=== PATIENT | female | born 1940 | race Caucasian/White ===

== ENCOUNTER 2016-12-29 12:50 | Outpatient (CLI) | payer MEDICARE, OTHER ==
[2008-10-15 16:38] VITALS: BP 151/85
[~2016-12-29] VITALS: Ht 162.6 cm; Wt 63.0 kg
[~2016-12-29 12:50] MED LIST: ACTONEL PO; ALLEGRA180 MG PO; ANTIVERT 25MG25 MG PO; ASPIR-LOW81 MG PO; ASPIRIN 32325 MG/TAB PO; CALCIUM ASCORB500 MG PO; CARDIZEM CD180 MG PO; CEFTIN500 MG PO; CELEBREX 200MG200 MG PO; CENTRUM SILVER1 TA1 PO; CLOBEX NAS; COMBIVENT INH14.7 GM IH; COZAAR 25MG25 MG/TAB; COZAAR 50MG50 MG/TAB PO; DUO-KAPS1 CAP PO; FIBERCON 6625 MG/TAB PO; FLAGYL 250250 MG/TAB PO; FLECAINIDE PO; LEVOTHROID0.125 MG PO; NATURE'S BL400 IU/ML PO; NORCO 325 MG-51 TAB PO; PRILOSEC 20MG20 MG PO; PROTONIX 40MG T40 MG; VALIUM 5MG T5 MG/TAB PO; VITAMIN C500 MG PO; VITAMIN D2000 I1 PO; Z-BEC1 TAB
[2016-12-29 13:36] VITALS: BP 142/61; PULSE 66; TEMP 98.5
[2016-12-29] MEDS ORDERED: SYNTHROID0.125 MG/T PO (13:50)
[2016-12-29] MEDS ORDERED: TAMBOCOR 1100 MG/TAB PO (13:50)
[2016-12-29] MEDS ORDERED: VENTOLIN0.09 MG IH (13:51)
[2016-12-29] MEDS ORDERED: TAZTIA180 PO (13:51)
[2016-12-29] MEDS ORDERED: MULTI VITAMINS1 TAB PO (13:52)
[2016-12-29] MEDS ORDERED: VITAMIND3 5000 PO (13:53)
== END 2016-12-29 15:24 | disposition home or self-care (01) ==
LOC: EUO 12:50
DX: M85.80 Other specified disorders of bone density and structure, unspecified site (principal); Z79.899 Other long term (current) drug therapy; Z90.722 Acquired absence of ovaries, bilateral
CPT/HCPCS: J3489

== ENCOUNTER → 2017-03-01 | Outpatient (CLI) | payer MEDICARE, OTHER ==
[~2017-03-01] MED LIST changes: +MULTI VITAMINS1 TAB PO; +SYNTHROID0.125 MG/T PO; +TAMBOCOR 1100 MG/TAB PO; +TAZTIA180 PO; +VENTOLIN0.09 MG IH; +VITAMIND3 5000 PO
== END ==
LOC: MC.RAD 09:00
DX: R92.0 Mammographic microcalcification found on diagnostic imaging of breast (principal)

== ENCOUNTER 2017-03-07 16:22 | Inpatient (IN) | payer MEDICARE ==
[2017-03-07] VITALS (172 sets, daily range): BP systolic 180; BP diastolic 102; PULSE 109; TEMP 99.4; O2SAT 81–98
[~2017-03-07] VITALS: Ht 162.6 cm; Wt 60.9 kg
[2017-03-07 17:20] LABS: BASO # 0.1 (0.0-0.2); BASO % 0.5 % (0.0-2.0); EOS % 0.2 % (0-4.0); GRAN # 7.9 (1.4-6.5); GRAN % 84.1 % (42.2-75.2); HEMATOCRIT 46.9 % (37.0-47.0); HEMOGLOBIN 15.9 g/dl (12.5-16.0); MEAN CELL VOLUME 101 fl (80.0-100.0); MEAN CORPUSCULAR HEMOGLOBIN 34 pg (27.0-31.0); MEAN CORPUSCULAR HGB CONC 34 g/dl (33.0-37.0); MEAN PLATELET VOLUME 9.8 fl (7.4-10.4); MONO # 0.4 (0.1-0.6); PLATELET COUNT 228 K/mm3 (130-400); RED BLOOD COUNT 4.66 M/mm3 (4.10-5.30); REDCELL DISTRIBUTION WIDTH-CV 13.6 % (11.5-14.5); WHITE BLOOD COUNT 9.3 K/mm3 (4.8-10.8)
[2017-03-07 17:34] LABS: ADJUSTED CALCIUM 9.7 mg/dL (8.4-10.2); ALANINE AMINOTRANSFERASE 20 U/L (9-52); ALBUMIN 4.4 gm/dL (3.5-5.0); ALKALINE PHOSPHATASE 107 U/L (50-136); ANION GAP 16 mmol/L (7-16); BILIRUBIN,TOTAL 1.3 mg/dL (0.0-1.0); BLOOD UREA NITROGEN 17 mg/dL (7-17); CARBON DIOXIDE 22 mmol/L (22-30); CHLORIDE 100 mmol/L (98-107); CREATININE, serum 0.98 mg/dL (0.52-1.25); GLUCOSE 151 mg/dL (74-106); LIPASE 52 U/L (23-300); SODIUM 138 mmol/L (137-145); TOTAL PROTEIN 8.9 gm/dL (6.4-8.2)
[2017-03-07] MEDS ORDERED: VITAMIN D 1001000 IU (17:38)
[2017-03-07] MEDS ORDERED: VITAMIN C500 MG PO (17:38)
[2017-03-07] MEDS ORDERED: ASPIRIN 32325 MG/TAB PO (17:39)
[2017-03-07] MEDS ORDERED: RECLAST5 MG/100 M IV (17:40)
[2017-03-07 17:42] LABS: C-REACTIVE PROTEIN < 0.5 mg/dL (0.0-0.9)
[2017-03-07 18:28] LABS: TROPONIN-I < 0.012 ng/mL (0.000-0.034)
[2017-03-07 18:33] LABS: pH GASTRIC CONTENTS 2
[2017-03-07 18:34] LABS: PH 8 (5-8); SQUAMOUS EPITHELIAL 0-2 /hpf; URINE APPEARANCE Clear; URINE BACTERIA None Seen /hpf; URINE BILIRUBIN Negative (NEGATIVE); URINE BLOOD 1+ (NEGATIVE); URINE COLOR Straw; URINE GLUCOSE 1+ (NEGATIVE); URINE KETONE 1+ (NEGATIVE); URINE UROBILINOGEN Negative (NEGATIVE)
[2017-03-07 21:09] LABS: B-TYPE NATRIURETIC PEPTIDE 743 pg/mL (0-450)
[2017-03-08] VITALS (601 sets, daily range): BP systolic 93–142; BP diastolic 57–80; PULSE 70–85; TEMP 98–99.4; O2SAT 82–100
[2017-03-08 06:06] LABS: BASO % 0.2 % (0.0-2.0); GRAN # 5.7 (1.4-6.5); GRAN % 70.3 % (42.2-75.2); HEMATOCRIT 38.3 % (37.0-47.0); LYMPH # 1.6 (1.2-3.4); LYMPH % 19.5 % (20.0-51.0); MEAN CELL VOLUME 102 fl (80.0-100.0); MEAN CORPUSCULAR HEMOGLOBIN 34 pg (27.0-31.0); MEAN CORPUSCULAR HGB CONC 33 g/dl (33.0-37.0); MONO # 0.8 (0.1-0.6); MONO % 9.6 % (1.7-9.3); PLATELET COUNT 202 K/mm3 (130-400); RED BLOOD COUNT 3.76 M/mm3 (4.10-5.30); REDCELL DISTRIBUTION WIDTH-CV 13.7 % (11.5-14.5); WHITE BLOOD COUNT 8.1 K/mm3 (4.8-10.8)
[2017-03-08 06:08] LABS: HEMOGLOBIN 12.7 g/dl (12.5-16.0)
[2017-03-08 06:18] LABS: CALCIUM 7.3 mg/dL (8.4-10.2); CREATININE, serum 0.91 mg/dL (0.52-1.25); POTASSIUM 3.4 mmol/L (3.4-5.0)
[2017-03-09] VITALS (12 sets, daily range): BP systolic 116–153; BP diastolic 57–76; PULSE 61–74; TEMP 98–98.9
[2017-03-09 08:32] LABS: HEMATOCRIT 40.5 % (37.0-47.0); HEMOGLOBIN 13.2 g/dl (12.5-16.0)
[2017-03-09] MEDS ORDERED: ZANTAC 150150 MG PO (14:48)
[2017-03-09] MEDS ORDERED: FLAGYL500 MG PO (15:58)
[2017-03-09] MEDS ORDERED: CEFTIN500 MG PO (15:59)
== END 2017-03-09 17:45 | disposition home or self-care (01) | DRG 394 ==
LOC: COL.ER 16:22 → ICU 19:37 → MEDICAL 03-08 17:49
PROVIDERS: Emergency Medicine; Internal Medicine Gastroenterology; Nurse Practitioner Family; Physician Assistant
PROC: 0DB78ZX Excision of Stomach, Pylorus, Via Natural or Artificial Opening Endoscopic, Diagnostic (ICD-10-PCS; principal; 2017-03-09 12:45)
PROC: 0DBN8ZX Excision of Sigmoid Colon, Via Natural or Artificial Opening Endoscopic, Diagnostic (ICD-10-PCS; 2017-03-09 12:45)
DX: K55.9 Vascular disorder of intestine, unspecified (principal); N39.0 Urinary tract infection, site not specified; K92.0 Hematemesis; E03.9 Hypothyroidism, unspecified; Z66 Do not resuscitate; K64.0 First degree hemorrhoids; I48.91 Unspecified atrial fibrillation; D47.2 Monoclonal gammopathy; K57.30 Diverticulosis of large intestine without perforation or abscess without bleeding; R03.0 Elevated blood-pressure reading, without diagnosis of hypertension; K29.70 Gastritis, unspecified, without bleeding; Z96.653 Presence of artificial knee joint, bilateral; Z79.82 Long term (current) use of aspirin; Z86.718 Personal history of other venous thrombosis and embolism; Z86.010 Personal history of colon polyps; Z80.0 Family history of malignant neoplasm of digestive organs
CPT/HCPCS: 99223-AI; 99239; C9113; J0696; J2405; J2550; J2704; J2765; J3010; J7030; Q9967

== ENCOUNTER → 2017-05-05 | Outpatient (CLI) | payer MEDICARE, OTHER ==
[~2017-05-05] MED LIST changes: +FLAGYL500 MG PO; +RECLAST5 MG/100 M IV; +VITAMIN D 1001000 IU; +ZANTAC 150150 MG PO
== END ==
LOC: COL.RAD 08:42
DX: K57.10 Diverticulosis of small intestine without perforation or abscess without bleeding (principal)

== ENCOUNTER 2017-08-23 15:03 | Inpatient (IN) | payer MEDICARE ==
[~2017-08-23] VITALS: Ht 162.6 cm; Wt 60.4 kg
[~2017-08-23 15:03] MED LIST changes: -VITAMIN D 1001000 IU; +VITAMIN D 1001000 IU PO
[2017-08-23 15:47] VITALS: BP 140/71; PULSE 88; TEMP 98.6
[2017-08-23] MEDS ORDERED: ZOFRAN 4MG T4 MG/TAB PO (16:11)
[2017-08-23] MEDS ORDERED: ULTRAM 50MG TAB50 MG PO (16:12)
[2017-08-24 05:45] VITALS: BP 118/82; PULSE 79; TEMP 98.4
[2017-08-24 16:06] VITALS: BP 144/67; PULSE 70; TEMP 97.5
[2017-08-25 05:44] VITALS: BP 133/64; PULSE 68; TEMP 98.6
[2017-08-25 16:17] VITALS: BP 150/80; PULSE 69; TEMP 98.1
[2017-08-26 06:00] VITALS: BP 152/73; PULSE 66; TEMP 98.2
[2017-08-26 15:00] VITALS: BP 133/71; PULSE 74; TEMP 98.1
[2017-08-27 06:00] VITALS: BP 153/74; PULSE 72; TEMP 98.4
[2017-08-27 18:11] VITALS: BP 155/83; PULSE 81; TEMP 98.7
[2017-08-28 06:35] VITALS: BP 143/86; PULSE 80; TEMP 98.8
[2017-08-28 15:55] VITALS: BP 131/69; PULSE 77; TEMP 98
[2017-08-29 04:18] VITALS: BP 146/79; PULSE 73; TEMP 98.4
[2017-08-29 15:58] VITALS: BP 135/71; PULSE 83; TEMP 98.3
[2017-08-30 06:00] VITALS: BP 164/80; PULSE 72; TEMP 98.1
[2017-08-30 16:08] VITALS: BP 124/64; PULSE 80; TEMP 97.6
[2017-08-31 06:44] VITALS: BP 150/61; PULSE 74; TEMP 99.1
[2017-08-31] MEDS ORDERED: TYLENOL 325MG325 MG PO (08:20)
[2017-08-31] MEDS ORDERED: LEADER CLE17 GM/Dose PO (08:23)
[2017-08-31] MEDS ORDERED: ULTRAM 50MG TAB50 MG PO (08:23)
== END 2017-08-31 11:45 | disposition home health service (06) | DRG 950 ==
DX: S83.411D Sprain of medial collateral ligament of right knee, subsequent encounter (principal); M25.511 Pain in right shoulder; M25.551 Pain in right hip; D47.2 Monoclonal gammopathy; I10 Essential (primary) hypertension; I48.0 Paroxysmal atrial fibrillation; W01.0XXD Fall on same level from slipping, tripping and stumbling without subsequent striking against object, subsequent encounter; G62.9 Polyneuropathy, unspecified
CPT/HCPCS: 99222-AI; 99232-AI; 99239; J1650

== ENCOUNTER 2018-01-12 14:30 | Outpatient (CLI) | payer MEDICARE, OTHER ==
[2008-10-15 16:38] VITALS: BP 151/85
[~2018-01-12] VITALS: Ht 162.6 cm; Wt 60.1 kg
[~2018-01-12 14:30] MED LIST changes: +LEADER CLE17 GM/Dose PO; +TYLENOL 325MG325 MG PO; +ULTRAM 50MG TAB50 MG PO; +ZOFRAN 4MG T4 MG/TAB PO
[2018-01-12] MEDS ORDERED: VITAMIN B125000 MCG PO (15:11)
[2018-01-12 15:14] VITALS: PULSE 65; TEMP 98.7
== END 2018-01-12 15:35 | disposition home or self-care (01) ==
LOC: EUO 14:30
DX: M81.0 Age-related osteoporosis without current pathological fracture (principal)
CPT/HCPCS: J3489

== ENCOUNTER 2018-02-21 08:27 | Emergency (ER) | payer MEDICARE, OTHER ==
[2008-10-15 16:38] VITALS: BP 151/85
[~2018-02-21] VITALS: Ht 162.6 cm; Wt 60.0 kg
[~2018-02-21 08:27] MED LIST changes: +VITAMIN B125000 MCG PO
[2018-02-21 08:51] LABS: BASO # 0.1 (0.0-0.2); BASO % 0.9 % (0.0-2.0); EOS # 0.5 (0.0-0.7); EOS % 6.8 % (0-4.0); GRAN # 3.7 (1.4-6.5); GRAN % 54.6 % (42.2-75.2); HEMATOCRIT 44.3 % (37.0-47.0); HEMOGLOBIN 14.8 g/dl (12.5-16.0); LYMPH # 1.8 (1.2-3.4); LYMPH % 27.3 % (20.0-51.0); MEAN CELL VOLUME 100 fl (80.0-100.0); MEAN CORPUSCULAR HEMOGLOBIN 33 pg (27.0-31.0); MEAN CORPUSCULAR HGB CONC 33 g/dl (33.0-37.0); MONO # 0.7 (0.1-0.6); MONO % 10.1 % (1.7-9.3); PLATELET COUNT 204 K/mm3 (130-400); RED BLOOD COUNT 4.44 M/mm3 (4.10-5.30)
[2018-02-21] MEDS ORDERED: TYLENOL 8 HR PO (08:57)
[2018-02-21] MEDS ORDERED: VITAMIN C500 MG PO (09:00)
[2018-02-21] MEDS ORDERED: ALREX 5 ML5 ML OP (09:00)
[2018-02-21 09:01] LABS: ALANINE AMINOTRANSFERASE 20 U/L (9-52); ALBUMIN 3.9 gm/dL (3.5-5.0); ALKALINE PHOSPHATASE 82 U/L (50-136); ANION GAP 10 mmol/L (7-16); AST,SGOT 24 U/L (15-37); BILIRUBIN,TOTAL 0.7 mg/dL (0.0-1.0); BLOOD UREA NITROGEN 18 mg/dL (7-17); CALCIUM 8.9 mg/dL (8.4-10.2); CARBON DIOXIDE 28 mmol/L (22-30); CHLORIDE 101 mmol/L (98-107); CREATININE, serum 1.02 mg/dL (0.52-1.25); GLUCOSE 115 mg/dL (74-106); POTASSIUM 3.9 mmol/L (3.4-5.0); SODIUM 139 mmol/L (137-145)
[2018-02-21] MEDS ORDERED: ALLEGRA 180MG180 MG PO (09:02)
[2018-02-21] MEDS ORDERED: COZAAR 50MG50 MG/TAB PO (09:03)
[2018-02-21] MEDS ORDERED: MULTI VITAMINS1 TAB PO (09:04)
[2018-02-21 09:12] LABS: TROPONIN-I < 0.012 ng/mL (0.000-0.034)
[2018-02-21] MEDS ORDERED: CATAPRES 0.1MG0.1 MG PO (12:10)
[2018-02-21 12:22] VITALS: BP 131/72; PULSE 64
== END 2018-02-21 12:22 | disposition home or self-care (01) ==
LOC: COL.ER 08:27
PROVIDERS: Emergency Medicine
DX: I10 Essential (primary) hypertension (principal); I48.91 Unspecified atrial fibrillation; E03.9 Hypothyroidism, unspecified; Z86.718 Personal history of other venous thrombosis and embolism; Z79.82 Long term (current) use of aspirin
CPT/HCPCS: J7030

== ENCOUNTER 2019-01-10 15:30 | Outpatient (RCR) | payer MEDICARE, OTHER ==
[2019-02-01] MEDS ORDERED: ZANTAC 150MG T150 MG PO (11:24)
[2019-02-01] MEDS ORDERED: CATAPRES 0.1MG0.1 MG PO (11:25)
[2019-02-01] MEDS ORDERED: ULTRAM 50MG TAB50 MG PO (11:26)
[2019-02-01] MEDS ORDERED: TAZTIA180 PO (11:28)
[2019-02-01] MEDS ORDERED: SYSTANE 0.4%-0.1 SOL OP (11:30)
[2019-02-01] MEDS ORDERED: RECLAST5 MG/100 M IV (11:33)
[2019-03-26] MEDS ORDERED: NEURONTIN300 MG/CAP PO (11:35)
== END 2019-04-02 | disposition home or self-care (01) ==
LOC: WSST
DX: R13.12 Dysphagia, oropharyngeal phase (principal)

== ENCOUNTER → 2019-01-10 | Outpatient (CLI) | payer MEDICARE, OTHER ==
[~2019-01-10] MED LIST changes: +ALLEGRA 180MG180 MG PO; +ALREX 5 ML5 ML OP; +CATAPRES 0.1MG0.1 MG PO; +TYLENOL 8 HR PO
== END ==
LOC: COL.RAD 13:58
DX: R13.12 Dysphagia, oropharyngeal phase (principal)

== ENCOUNTER 2019-02-01 10:11 | Outpatient (CLI) | payer MEDICARE, OTHER ==
[2008-10-15 16:38] VITALS: BP 151/85
[~2019-02-01] VITALS: Ht 162.6 cm; Wt 57.1 kg
[2019-02-01 10:47] VITALS: BP 124/64; PULSE 65; TEMP 98
[2019-02-01] MEDS ORDERED: ZANTAC 150MG T150 MG PO (11:24)
[2019-02-01] MEDS ORDERED: CATAPRES 0.1MG0.1 MG PO (11:25)
[2019-02-01] MEDS ORDERED: ULTRAM 50MG TAB50 MG PO (11:26)
[2019-02-01] MEDS ORDERED: TAZTIA180 PO (11:28)
[2019-02-01] MEDS ORDERED: SYSTANE 0.4%-0.1 SOL OP (11:30)
[2019-02-01] MEDS ORDERED: RECLAST5 MG/100 M IV (11:33)
== END 2019-02-01 11:34 | disposition home or self-care (01) ==
LOC: EUO 10:11
DX: M81.0 Age-related osteoporosis without current pathological fracture (principal); M85.80 Other specified disorders of bone density and structure, unspecified site
CPT/HCPCS: J3489

== ENCOUNTER 2019-02-19 13:40 | Emergency (ER) | payer MEDICARE, OTHER ==
[2008-10-15 16:38] VITALS: BP 151/85
[~2019-02-19] VITALS: Ht 162.6 cm; Wt 59.0 kg
[~2019-02-19 13:40] MED LIST changes: +SYSTANE 0.4%-0.1 SOL OP; +ZANTAC 150MG T150 MG PO
[2019-02-19 17:00] VITALS: BP 158/90; PULSE 71; TEMP 98.2
== END 2019-02-19 17:05 | disposition home or self-care (01) ==
LOC: COL.ER 13:40
DX: S32.502A Unspecified fracture of left pubis, initial encounter for closed fracture (principal); I10 Essential (primary) hypertension; R40.2412 Glasgow coma scale score 13-15, at arrival to emergency department; W06.XXXA Fall from bed, initial encounter

== ENCOUNTER → 2019-03-07 | Outpatient (CLI) | payer MEDICARE, OTHER | LOC: MC.RAD 12:56 | DX: Z12.31 Encounter for screening mammogram for malignant neoplasm of breast (principal) ==

== ENCOUNTER 2019-03-26 08:35 | Emergency (ER) | payer MEDICARE, OTHER ==
[2008-10-15 16:38] VITALS: BP 151/85
[~2019-03-26] VITALS: Ht 160 cm; Wt 53.6 kg
[2019-03-26 08:40] VITALS: TEMP 97.2
--- NOTE | 2019-03-26 10:32 | NUR ---
SW received consult for patient in ED. case worker met with patient and POA about patient DC. Patient reports that she is in a lot of pain and has difficulty getting in and out of her bed and indicated that she is pending move to [facility] on this week to [facility]. Patient reports that she was in rehab at [facility] for a skilled stay and had completed the stay. Patient reports that she has not had the home health services and intially refused. SW called [facility] for service support. [facility] indicated that they [facility]. ZACHARY informed patient of options. Patient made the choice [facility] for [place] next four days. Patient indicated that she needs pain management. ZACHARY faxed homehealth referral to [phone] and [phone]. Pending [facility] to start today upon DC with order for [facility] support.
[2019-03-26] MEDS ORDERED: NEURONTIN300 MG/CAP PO (11:35)
[2019-03-26 11:50] VITALS: BP 143/77; PULSE 74
== END 2019-03-26 11:50 | disposition home or self-care (01) ==
LOC: COL.ER 08:35
DX: M19.011 Primary osteoarthritis, right shoulder (principal); M19.012 Primary osteoarthritis, left shoulder; M48.00 Spinal stenosis, site unspecified; Z79.82 Long term (current) use of aspirin
CPT/HCPCS: J2270; J2550

== ENCOUNTER → 2019-07-26 | Outpatient (CLI) | payer MEDICARE, OTHER ==
[~2019-07-26] MED LIST changes: +NEURONTIN300 MG/CAP PO
== END ==
LOC: COL.RAD 12:58
DX: D75.89 Other specified diseases of blood and blood-forming organs (principal)

== ENCOUNTER 2020-07-10 11:28 | Emergency (ER) | payer MEDICARE, OTHER ==
[2008-10-15 16:38] VITALS: BP 151/85
[~2020-07-10] VITALS: Ht 162.6 cm; Wt 55.5 kg
[2020-07-10 11:30] VITALS: TEMP 97.7
[2020-07-10 13:22] LABS: CALCIUM 9.6 mg/dL (8.4-10.2); CREATININE, serum 1.28 (0.52-1.25); POTASSIUM 4.3 mmol/L (3.4-5.0)
[2020-07-10 16:33] VITALS: BP 140/88; PULSE 92
== END 2020-07-10 16:55 | disposition home or self-care (01) ==
LOC: COL.ER 11:28
PROVIDERS: Emergency Medicine
DX: M54.5 Low back pain (principal); Z88.0 Allergy status to penicillin; Z88.1 Allergy status to other antibiotic agents; Z88.2 Allergy status to sulfonamides; Z87.891 Personal history of nicotine dependence; Z79.82 Long term (current) use of aspirin; W05.0XXA Fall from non-moving wheelchair, initial encounter
CPT/HCPCS: J1885

== ENCOUNTER → 2021-09-04 | Outpatient (CLI) | payer MEDICARE, OTHER | LOC: MC.RAD 13:46 | DX: Z12.31 Encounter for screening mammogram for malignant neoplasm of breast (principal) ==

== ENCOUNTER 2022-01-05 17:51 | Observation (INO) | payer MEDICARE, OTHER ==
[~2022-01-05] VITALS: Ht 160 cm; Wt 52.9 kg
[~2022-01-05 17:51] MED LIST changes: -TAMBOCOR 1100 MG/TAB PO; +TAMBOCOR50 MG PO
[2022-01-05 18:21] LABS: BASO # 0.1 K/mm3 (0.0-0.2); BASO % 0.9 % (0.0-2.0); EOS # 0.6 K/mm3 (0.0-0.7); EOS % 6.6 % (0.0-4.0); GRAN % 72.5 % (42.2-75.2); HEMATOCRIT 40.8 % (37.0-47.0); HEMOGLOBIN 13.4 g/dl (12.5-16.0); LYMPH # 1.1 K/mm3 (1.2-3.4); LYMPH % 10.9 % (20.0-51.0); MEAN CELL VOLUME 104 fl (80.0-100.0); MEAN CORPUSCULAR HEMOGLOBIN 34 pg (27-31); MEAN CORPUSCULAR HGB CONC 33 g/dl (33.0-37.0); MEAN PLATELET VOLUME 9.6 fl (7.4-10.4); MONO # 0.9 K/mm3 (0.1-0.6); MONO % 8.8 % (1.7-9.3); PLATELET COUNT 135 K/mm3 (130-400); RED BLOOD COUNT 3.93 M/mm3 (4.10-5.30); REDCELL DISTRIBUTION WIDTH-CV 14.5 % (11.5-14.5)
[2022-01-05 18:37] LABS: ALBUMIN 3.5 gm/dL (3.4-4.8); ANION GAP 12 mmol/L (7-16); BLOOD UREA NITROGEN 22 mg/dL (10-20); CALCIUM 8.9 mg/dL (8.4-10.2); CARBON DIOXIDE 22 mmol/L (23-31); CHLORIDE 105 mmol/L (98-107); CREATININE, serum 1.29 mg/dL (0.57-1.11); GLUCOSE 146 mg/dL (70-99); PHOSPHOROUS 3.6 mg/dL (2.3-4.7); POTASSIUM 4.2 mmol/L (3.5-4.5); SODIUM 139 mmol/L (136-145)
[2022-01-05] MEDS ORDERED: ASPIRIN E.C. 8181 MG PO (18:39)
[2022-01-05] MEDS ORDERED: VITAMIN D31000 IU PO (18:40)
[2022-01-05] MEDS ORDERED: B-121000 MCG PO (18:41)
[2022-01-05] MEDS ORDERED: MIRALAX PA17 GM/Dose PO (18:45)
[2022-01-05] MEDS ORDERED: PROLIA60 MG/ML SQ (18:45)
[2022-01-05] MEDS ORDERED: CALCIUM 600600 MG PO (18:46)
[2022-01-05] MEDS ORDERED: ALREX 5 ML5 ML OP (18:46)
[2022-01-05] MEDS ORDERED: NEURONTIN100 MG/CAP PO (18:47)
[2022-01-05 18:53] LABS: TROPONIN-I < 0.010 ng/mL (0.00-0.033)
[2022-01-05 19:43] LABS: COLLECTION METHOD CLEAN CATCH
[2022-01-05 20:01] LABS: SQUAMOUS EPITHELIAL None Seen /hpf (0-10); URINE BACTERIA None Seen /hpf (NONE SEEN)
[2022-01-05 20:02] LABS: PH 6 (5-8); URINE APPEARANCE Clear (CLEAR/HAZY); URINE BLOOD 1+ (NEGATIVE); URINE COLOR Straw (YELLOW); URINE GLUCOSE Negative (NEGATIVE); URINE KETONE Negative (NEGATIVE); URINE NITRATE Negative (NEGATIVE); URINE PROTEIN(semi-quant) Negative (NEGATIVE); URINE UROBILINOGEN Negative (NEGATIVE)
[2022-01-06] VITALS (15 sets, daily range): BP systolic 132–183; BP diastolic 71–96; PULSE 67–81; TEMP 98.5
[2022-01-06 05:50] LABS: BASO # 0.1 K/mm3 (0.0-0.2); BASO % 1.1 % (0.0-2.0); EOS # 0.9 K/mm3 (0.0-0.7); EOS % 12.5 % (0.0-4.0); GRAN # 3.9 K/mm3 (1.4-6.5); GRAN % 54.1 % (42.2-75.2); HEMOGLOBIN 11.5 g/dl (12.5-16.0); LYMPH # 1.5 K/mm3 (1.2-3.4); LYMPH % 21.1 % (20.0-51.0); MEAN CELL VOLUME 102 fl (80.0-100.0); MEAN CORPUSCULAR HEMOGLOBIN 33 pg (27-31); MEAN CORPUSCULAR HGB CONC 33 g/dl (33.0-37.0); MEAN PLATELET VOLUME 9.9 fl (7.4-10.4); MONO # 0.8 K/mm3 (0.1-0.6); MONO % 11.1 % (1.7-9.3); PLATELET COUNT 129 K/mm3 (130-400); RED BLOOD COUNT 3.45 M/mm3 (4.10-5.30); REDCELL DISTRIBUTION WIDTH-CV 14.3 % (11.5-14.5)
[2022-01-06 06:05] LABS: CALCIUM 8.4 mg/dL (8.4-10.2); CREATININE, serum 1.04 mg/dL (0.57-1.11); POTASSIUM 3.9 mmol/L (3.5-4.5)
[2022-01-06 06:16] LABS: HEMATOCRIT 35.1 % (37.0-47.0)
[2022-01-06 06:33] LABS: TROPONIN-I 0.034 ng/mL (0.00-0.033)
--- NOTE | 2022-01-06 10:16 | NUR ---
Initial visit; "Kayla" thanked Joinery Setter Out for looking in on her and offering God's blessings. Patient was receptive to Joinery Setter Out keeping her in her prayers and Joinery Setter Out will follow up while patient is here at [facility].
[2022-01-06] MEDS ORDERED: SYSTANE GEL EYE10 ML OP (10:51)
[2022-01-06] MEDS ORDERED: CLARITIN 1010 MG/TAB PO (10:52)
--- NOTE | 2022-01-06 11:28 | NUR ---
SEE MERGE FOR ALL MEDICATION ADMINISTRATION TIMES, INTRA AND POST SEDATION ASSESSMENTS
--- NOTE | 2022-01-06 15:19 | NUR ---
THIS CONSULTANT ATTEMPTED TO REMOVE 3MLS OF AIR FROM THE RADIAL COMPRESSION BAND. THE RADIAL PUNCTURE SITE BEGAN TO BLEED AND I PUT THE 3MLS BACK, STOPPING THE BLEEDING.
--- NOTE | 2022-01-06 18:28 | NUR ---
PT ALERT AND ORIENTED. BACK FROM CARDIAC CATH AT 1300. SOME BLEEDING AT FEMORAL SITE, STOPPING WITH MANUAL PRESSURE. RADIAL SITE BLEEDING WITH AIR OUT ON FIRST 2 ATTEMPTS HAVE SUBSEQUENTLY BEEN ABLE TO PULL 5 MLS WITH NO BLEEDING. PT HAD ELEVATED BP, RESOLVING AFTER IV HYDRALAZINE. PT HAD N/V AFTER HYDRALAZINE INJECTION, RESOLVING WITH FOOD.
--- NOTE | 2022-01-07 00:35 | NUR ---
Pt alert and oriented. Follows commands. Pt was vomiting during shift change report. Prn zofran was ordered and administered by the ángelakyft RN with pt reporting relief. TR band remained on at shift change d/t bleeding at the right radial site. The right femoral site had also been reportedly bleeding after the procedure, but had ceased bleeding after a few hours for dayshift. Both the right radial and right femoral sites were assessed at bedside with the dayskyft RN. Femoral site is soft, and remains soft, with no bruising/tenderness/edema/hematoma. The femstop dressing is in place. There is a moderate amount of dried red drainage on the femstop gauze. The gauze is not saturated. Continuing to frequently assess the dressing. The right radial band had 9 ml left in it at shift change, with no bleeding. I removed 3 ml out around 2014, waitied 15 mins and removed another 3 ml. No new bleeding/drainage was noted. After another 30 mins the final 3 ml was removed from the right radial TR band and a bandaid dressing was applied. Site is soft/non-edematous. No pain/hematoma/bleeding noted. Pt had began to report more nausea around 2100, prn zofran was administered with relief reported. Pt also reported having some diarrhea earlier in the day. Pt has poor appetite. VS stable. On room air. Shift assessment performed. Medications administered per orders and education provided. No significant skin issues noted. Pt up to ambulate around room with walker. Bed low and locked, call hagan within reach. Pt does not report any questions at this time. No new concerns at this time.
--- NOTE | 2022-01-07 02:16 | NUR ---
Assessed pt's femoral and radial sites again. Pt's femoral site is soft with no swelling/hematoma. The dressing appeared to have more areas of red drainage on the gauze. Provider and warehouse packaging supervisor were notified. A sandbag has been applied to the right femoral site. Pt was educated. Site remains soft. Radial site remains c/d/i. No other changes at this time.
[2022-01-07 03:46] VITALS: BP 153/92; PULSE 85; TEMP 98
--- NOTE | 2022-01-07 04:36 | NUR ---
PT'S SYSTOLIC BP WAS 153. PRN APRESOLINE IS ORDERED TO BE ADMINISTERED FOR A BP OF >150. PT REPORTS THE APRESOLINE CAUSES NAUSEA/VOMITING/DIARRHEA AND STATES SHE WOULD NOT LIKE TO TAKE THE MEDICATION AGAIN. PT STILL REPORTS NAUSEA OVERNIGHT AND AGAIN THIS MORNING. NOTIFIED DESIRAE CUNNINGHAM. PROVIDER STATED TO HOLD THE MEDICATION AT THIS TIME. NO OTHER CHANGES AT THIS TIME.
--- NOTE | 2022-01-07 05:55 | NUR ---
Pt alert and oriented this morning. Requested to walk in the rodriguez. Continued to report nausea overnight, administered prn zofran this morning again and after ambulating the pt began dry heaving. Pt reported feeling frustrated because she is "feeling weak" and continues to be nauseated. Pt reports "I just need to sleep". Pt's femoral site is soft with no hematoma/pain/redness noted. Femoral site gauze dressing is now completely red with drainage, but there is no oozing or bleeding spreading off of the gauze dressing. The sandbag was on the pt's femoral site for approxiemately 3 hours while the pt lied flat. Pt denies pain at the femoral site. Right radial site is soft and dressing is c/d/i. Pt's loop recorder dressing remains intact. Site is soft. Dressing has a moderate amount of red drainage noted on the dressing, but the drainage has not soaked through the dressing or leaked. VS stable. On room air. Pt up to void and had a BM overnight. Fall precautions in place. telemtry on. Bed low and locked, call hagan within reach. No other concerns at this time.
[2022-01-07] MEDS ORDERED: CORDARONE200 MG/TAB PO (07:53)
[2022-01-07] MEDS ORDERED: LIPITOR 40MG TA40 MG PO (07:54)
[2022-01-07] MEDS ORDERED: NORVASC 5MG5 MG/TAB PO (07:54)
[2022-01-07 07:59] VITALS: BP 108/66; PULSE 89; TEMP 98.2
--- NOTE | 2022-01-07 09:07 | NUR ---
PT ALERT AND ORIENTED THIS MORNING. DANGLED BEDSIDE TO TAKE MEDS AND FOR SHIFT ASSESSMENT. MURMUR NOTED ON AUSCULTATION OF HEART. PT EXPERIENCED NAUSEA AND DECIDED TO LAY BACK DOWN. CALL LIGHT WITHIN REACH.
[2022-01-07] MEDS ORDERED: MELATIN 3 MG-11 TAB PO (09:19)
--- NOTE | 2022-01-07 10:24 | NUR ---
Diamond Picker attended rounds with Radha Hua and medical team members. Patient is eligible for discharge today, back to her independent apartment at [facility]. She reports feeling "weak" today, and home health/PT is recommended. Patient is in agreement with this, and she verbalizes understanding she has choices for HH services/agency; she prefers to use [facility] HH."Dr. Guaman will take care of all that." A referral is faxed to Meng at [facility]. Follow up phone contact with Meng: he informs she is accepted for [facility] for her discharge today. Patient states she will call her friend Zamzam to coordinate a ride home at noon. Hedy MARINA is updated. *Discharge plan: return to indpendent apartment at [facility] with [facility]*
[2022-01-07 12:02] VITALS: BP 120/69; PULSE 86; TEMP 98.1
--- NOTE | 2022-01-07 12:07 | NUR ---
Discharge paperwork and instructions reviewed with patient. All questions answered at this time. IV to L wrist dc'd catheter tip intact. Pt wheeled out by [facility] staff member at this time.
== END 2022-01-07 12:08 | disposition home or self-care (01) ==
LOC: COL.ER 17:51 → MEDICAL 22:56
PROVIDERS: Emergency Medicine; Student in an Organized Health Care Education/Training Program; ADMIT Student in an Organized Health Care Education/Training Program
DX: I08.3 Combined rheumatic disorders of mitral, aortic and tricuspid valves (principal); I25.10 Atherosclerotic heart disease of native coronary artery without angina pectoris; I11.9 Hypertensive heart disease without heart failure; G62.9 Polyneuropathy, unspecified; E16.2 Hypoglycemia, unspecified; R77.8 Other specified abnormalities of plasma proteins; Z20.822 Contact with and (suspected) exposure to COVID-19; I47.1 Supraventricular tachycardia; E03.9 Hypothyroidism, unspecified; K21.9 Gastro-esophageal reflux disease without esophagitis; I48.0 Paroxysmal atrial fibrillation; G47.00 Insomnia, unspecified; Z79.899 Other long term (current) drug therapy; Z79.82 Long term (current) use of aspirin; Z79.890 Hormone replacement therapy
CPT/HCPCS: 99222-AI; 99232-AI; C1760; C1764; C1769; C1894; G0378; J0360; J1644; J1650; J2250; J2405; J3010

== ENCOUNTER → 2022-01-22 | Outpatient (CLI) | payer MEDICARE, OTHER ==
[~2022-01-22] MED LIST changes: +ASPIRIN E.C. 8181 MG PO; +B-121000 MCG PO; +CALCIUM 600600 MG PO; +CLARITIN 1010 MG/TAB PO; +CORDARONE200 MG/TAB PO; +LIPITOR 40MG TA40 MG PO; +MELATIN 3 MG-11 TAB PO; +MIRALAX PA17 GM/Dose PO; +NEURONTIN100 MG/CAP PO; +NORVASC 5MG5 MG/TAB PO; +PROLIA60 MG/ML SQ; +SYSTANE GEL EYE10 ML OP; +VITAMIN D31000 IU PO
== END ==
LOC: COL.RAD 10:48
DX: I35.0 Nonrheumatic aortic (valve) stenosis (principal); I77.1 Stricture of artery; I72.3 Aneurysm of iliac artery
CPT/HCPCS: Q9967

== ENCOUNTER 2022-03-10 18:50 | Inpatient (IN) | payer MEDICARE, OTHER ==
[~2022-03-10] VITALS: Ht 160 cm; Wt 56.4 kg
[2022-03-10 20:47] LABS: ARTERIAL BLD GAS O2 SATURATION 94.1 % (92-100); ARTERIAL BLD GAS TCO2 CT 23.5; ARTERIAL BLOOD GAS BASE EXCESS -0.4 (-2-2); ARTERIAL BLOOD GAS HCO3 22.6 meq/L (22-26); ARTERIAL BLOOD GAS PCO2 31.1 mmHg (35-45); ARTERIAL BLOOD GAS PO2 67.4 mmHg (80-100); ARTERIAL BLOOD GAS pH 7.48 (7.35-7.45)
[2022-03-10 21:10] LABS: MEAN CELL VOLUME 105 fl (80.0-100.0); MEAN CORPUSCULAR HGB CONC 33 g/dl (33.0-37.0); PLATELET COUNT 151 K/mm3 (130-400); RED BLOOD COUNT 2.73 M/mm3 (4.10-5.30); REDCELL DISTRIBUTION WIDTH-CV 17.2 % (11.5-14.5)
[2022-03-10 21:14] LABS: HEMATOCRIT 28.7 % (37.0-47.0); HEMOGLOBIN 9.6 g/dl (12.5-16.0); MEAN CORPUSCULAR HEMOGLOBIN 35 pg (27-31)
[2022-03-10 21:28] LABS: ALBUMIN 3.5 gm/dL (3.4-4.8); CALCIUM 8.1 mg/dL (8.4-10.2); CREATININE, serum 4.64 mg/dL (0.57-1.11); POTASSIUM 4.3 mmol/L (3.5-4.5); TOTAL PROTEIN 7.5 gm/dL (6.2-8.1)
[2022-03-10 21:28] LABS: COLLECTION METHOD CLEAN CATCH
[2022-03-10 21:34] LABS: PH 6.5 (5.0-8.5); URINE APPEARANCE Clear (CLEAR/HAZY); URINE BLOOD 1+ (NEGATIVE); URINE COLOR Yellow (YELLOW); URINE GLUCOSE Negative (NEGATIVE); URINE KETONE Negative (NEGATIVE); URINE NITRATE Negative (NEGATIVE); URINE PROTEIN(semi-quant) 1+ (NEGATIVE); URINE UROBILINOGEN 0.2 E.U/dL (0.2-1.0)
[2022-03-10 21:36] LABS: TROPONIN-I 0.09 ng/mL (0.00-0.033)
[2022-03-10 21:41] LABS: MUCOUS Present (NOT PRESENT); SQUAMOUS EPITHELIAL None Seen /hpf (0-10); URINE BACTERIA None Seen /hpf (NONE SEEN)
[2022-03-10 21:46] LABS: ANISOCYTOSIS 1+; BAND 2 % (0-10); EOSINOPHIL 1 % (0-4); LYMPHOCYTE 15 % (20.0-51.0); NEUTROPHILS 73 % (42.0-75.2); PLATELET ESTIMATE NORMAL (NORMAL)
[2022-03-10 21:47] LABS: BURR CELLS 1+; OVALOCYTES 1+
[2022-03-11] VITALS (7 sets, daily range): BP systolic 137–165; BP diastolic 71–85; PULSE 62–70; TEMP 98–98.9
[2022-03-11] MEDS ORDERED: LIPITOR 40MG TA40 MG PO (01:58)
[2022-03-11] MEDS ORDERED: SYNTHROID0.125 MG/T PO (01:58)
[2022-03-11] MEDS ORDERED: ASPIRIN 81M81 MG/TA2 PO (01:58)
[2022-03-11] MEDS ORDERED: CORDARONE200 MG/TAB PO (01:58)
[2022-03-11] MEDS ORDERED: COZAAR100 MG PO (01:58)
[2022-03-11] MEDS ORDERED: TYLENOL 325MG325 MG PO (01:58)
[2022-03-11] MEDS ORDERED: ALLEGRA 180MG180 MG PO (01:58)
[2022-03-11 02:38] LABS: C-REACTIVE PROTEIN 0.4 mg/dL (0.00-0.50); MAGNESIUM 2.4 mg/dL (1.6-2.6); PHOSPHOROUS 4.2 mg/dL (2.3-4.7)
--- NOTE | 2022-03-11 08:00 | NUR ---
Pt awake and laying in bed. MAURY Landeros student currently in pts room. Morning medications administered per eMAR. Shift assessment completed. Noticed blood-tinged sputum on napkin; Heparin SQ held. Physician notified by SALAS Conn. Pt now using SCDs for VTE. Adventitious lung sounds at bases KWAN upon auscultation; O2 sat 96% at 2L per NC. Murmur heard during heart auscultation; telemetry on. BSx4 hypoactive. INT on L forearm intact; no edema or redness. Pt complains of having a headache but would like to sleep for relief. Fall precautions remain in place. Call light within reach.
[2022-03-11 08:04] LABS: MEAN CELL VOLUME 105 fl (80.0-100.0); MEAN CORPUSCULAR HGB CONC 33 g/dl (33.0-37.0); MEAN PLATELET VOLUME 10.8 fl (7.4-10.4); PLATELET COUNT 149 K/mm3 (130-400); RED BLOOD COUNT 2.38 M/mm3 (4.10-5.30); REDCELL DISTRIBUTION WIDTH-CV 17.2 % (11.5-14.5)
[2022-03-11 08:06] LABS: HEMOGLOBIN 8.3 g/dl (12.5-16.0); MEAN CORPUSCULAR HEMOGLOBIN 35 pg (27-31)
[2022-03-11 08:12] LABS: CALCIUM 7.6 mg/dL (8.4-10.2); CREATININE, serum 4.61 mg/dL (0.57-1.11); POTASSIUM 3.8 mmol/L (3.5-4.5)
[2022-03-11 08:48] LABS: ANISOCYTOSIS 1+; BAND 2 % (0-10); EOSINOPHIL 38 % (0-4); LYMPHOCYTE 7 % (20.0-51.0); NEUTROPHILS 47 % (42.0-75.2); PLATELET ESTIMATE NORMAL (NORMAL)
[2022-03-11 08:49] LABS: BURR CELLS 1+
--- NOTE | 2022-03-11 10:05 | NUR ---
Bloody sputum noted after patient cough. Dr. Morgan notified, verbal orders to stop heparin sub q injection and transition to SCD recieved. Orders entered.
--- NOTE | 2022-03-11 10:05 | NUR ---
Bloody sputum noted after patient cough. Dr. Morgan notified, verbal orders to stop heparin sub q injection and transition to SCD recieved. Orders entered.
[2022-03-11] MEDS ORDERED: PROAIR HFA0.09 MG/AC IH (11:40)
--- NOTE | 2022-03-11 15:15 | NUR ---
Personal Caregiver met with patient to discuss discharge planning. Patient lives at [facility] and sees Dr. Ragland for primary care. Patient has her medications delivered from [facility]. Patient uses a walker for ambulation and does not normally use oxygen but is currently wearing it. Patient is mostly independent with ADLS but reports she has [facility] which assists her with bathing. Patient has DPOA-HC in EMR which designates her friend, Ana (ph#[phone]). Patient would prefer to return to her apartment with continued Home Health. PT/OT ordered. SW contacted Gloria at [facility] as well as Johnathan at [facility] to provide update. Gloria will talk with Dr. Ragland's office as they anticipated patient may need SNF. Discharge Plan: Pending PT/OT recs, HH vs SNF
--- NOTE | 2022-03-11 15:15 | NUR ---
Cutter Banana Room met with patient to discuss discharge planning. Patient lives at [facility] and sees Dr. Ragland for primary care. Patient has her medications delivered from [facility]. Patient uses a walker for ambulation and does not normally use oxygen but is currently wearing it. Patient is mostly independent with ADLS but reports she has [facility] which assists her with bathing. Patient has DPOA-HC in EMR which designates her friend, Ana (ph#[phone]). Patient would prefer to return to her apartment with continued Home Health. PT/OT ordered. SW contacted Gloria at [facility] as well as Johnathan at [facility] to provide update. Gloria will talk with Dr. Ragland's office as they anticipated patient may need SNF. Discharge Plan: Pending PT/OT recs, HH vs SNF
[2022-03-12] VITALS (15 sets, daily range): BP systolic 142–173; BP diastolic 72–116; PULSE 65–73; TEMP 96–98.8
--- NOTE | 2022-03-12 05:15 | NUR ---
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 PT RESTING IN BED WATCHING TV. PT COMPLAINED OF BACK PAIN. PT GIVEN TYLENOL FOR PAIN. PT DID NOT FEEL THE TYLENOL WAS EFFECTIVE. HOSPITALIST CALLED. LIDOCAINE PATCH ORDERED AND PLACE. PT FELT PATCH WAS NOT EFFECTIVE. HOSPITALIST CALLED AGAIN. NORCO ORDERED AND GIVEN. PT FELT THE NORCO HELPED WITH HER PAIN. PT DENIED CHEST PAIN, PALPITATIONS, N,V,D, SOB OR DIZZINESS. 1 UNIT OF PRBC GIVEN. PT TOLERATED WELL. VSS. PT EXPRESSED NO ADDITIONAL NEEDS AT THIS TIME. CALL LIGHT WITHIN REACH.
--- NOTE | 2022-03-12 05:15 | NUR ---
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 PT RESTING IN BED WATCHING TV. PT COMPLAINED OF BACK PAIN. PT GIVEN TYLENOL FOR PAIN. PT DID NOT FEEL THE TYLENOL WAS EFFECTIVE. HOSPITALIST CALLED. LIDOCAINE PATCH ORDERED AND PLACE. PT FELT PATCH WAS NOT EFFECTIVE. HOSPITALIST CALLED AGAIN. NORCO ORDERED AND GIVEN. PT FELT THE NORCO HELPED WITH HER PAIN. PT DENIED CHEST PAIN, PALPITATIONS, N,V,D, SOB OR DIZZINESS. 1 UNIT OF PRBC GIVEN. PT TOLERATED WELL. VSS. PT EXPRESSED NO ADDITIONAL NEEDS AT THIS TIME. CALL LIGHT WITHIN REACH.
--- NOTE | 2022-03-12 08:18 | NUR ---
Shift assessment preformed.
--- NOTE | 2022-03-12 08:18 | NUR ---
Shift assessment preformed.
[2022-03-12 09:35] LABS: HEMATOCRIT 31.7 % (37.0-47.0); HEMOGLOBIN 10.6 g/dl (12.5-16.0)
[2022-03-12 09:50] LABS: ALBUMIN 3.1 gm/dL (3.4-4.8); CALCIUM 7.5 mg/dL (8.4-10.2); CREATININE, serum 4.66 mg/dL (0.57-1.11); PHOSPHOROUS 4.2 mg/dL (2.3-4.7); POTASSIUM 3.7 mmol/L (3.5-4.5)
--- NOTE | 2022-03-12 11:04 | NUR ---
Shift assessment preformed. Scheduled medications given by RN student under close supervision of their instructor. Parra catheter in place, no kink in tubing, securement device in place. Urine yellow and clear. Patient currently requiring 6L of O2 via nasal cannula. Dyspnea upon exertion noted. Patient is currently laying in bed. Denies any pain, discomfort, SOA or further needs at this time. Patient initially hypertensive, vitals rechecked and are currently WNL. Call light in reach. Fall precautions in place.
--- NOTE | 2022-03-12 13:55 | NUR ---
Primary nurse was assisted with [phone] patient care by [employer] student Alondra Gutierrez and [employer] instructor Leyla BELTRAN, RN.
--- NOTE | 2022-03-12 13:55 | NUR ---
Primary nurse was assisted with [phone] patient care by [employer] [facility] student Alondra Gutierrez and [employer] instructor Leyla BELTRAN, RN.
--- NOTE | 2022-03-12 15:37 | NUR ---
Bridge Design Engineer met with patient to review discharge plan. SW reviewed PT recommendation for vs SNF. Patient prefers to return to her apartment with [facility], but is open to SNF in the future if needed. SW faxed referral to [facility] and updated Gloria at SNF. Discharge Plan: [facility] with
--- NOTE | 2022-03-12 18:45 | NUR ---
Patient has had an uneventful day. One time dose of Losartan given per Dr. Morgan for BP of 173/95, upon recheck, BP WNL. Telephone order for one time dose of IV lasix also recieved and entered. Patient currently requiring 6L if O2 via NC. Dyspnea upon exertion noted. Parra catheter in place. Securment device in place. Patient denies any further pain, discomfort, SOA, or further needs at this time. Call light in reach. Fall precautions in place.
[2022-03-13 03:24] VITALS: BP 135/76; PULSE 70; TEMP 98.8
[2022-03-13 06:28] LABS: BASO # 0.1 K/mm3 (0.0-0.2); BASO % 0.6 % (0.0-2.0); EOS % 10.9 % (0.0-4.0); GRAN # 6.1 K/mm3 (1.4-6.5); GRAN % 68.1 % (42.2-75.2); LYMPH % 10.9 % (20.0-51.0); MEAN CELL VOLUME 101 fl (80.0-100.0); MEAN CORPUSCULAR HGB CONC 33 g/dl (33.0-37.0); MEAN PLATELET VOLUME 10.6 fl (7.4-10.4); MONO # 0.8 K/mm3 (0.1-0.6); MONO % 9.1 % (1.7-9.3); PLATELET COUNT 151 K/mm3 (130-400); RED BLOOD COUNT 2.75 M/mm3 (4.10-5.30); REDCELL DISTRIBUTION WIDTH-CV 18.4 % (11.5-14.5)
[2022-03-13 06:31] LABS: HEMATOCRIT 27.8 % (37.0-47.0); HEMOGLOBIN 9.1 g/dl (12.5-16.0); MEAN CORPUSCULAR HEMOGLOBIN 33 pg (27-31)
[2022-03-13 06:47] LABS: ALBUMIN 2.6 gm/dL (3.4-4.8); CALCIUM 7.4 mg/dL (8.4-10.2); CREATININE, serum 4.38 mg/dL (0.57-1.11); MAGNESIUM 2.1 mg/dL (1.6-2.6); PHOSPHOROUS 4.2 mg/dL (2.3-4.7); POTASSIUM 3.9 mmol/L (3.5-4.5)
[2022-03-13 08:38] VITALS: BP 133/67; PULSE 71; TEMP 98.7
--- NOTE | 2022-03-13 10:40 | NUR ---
Polymer Scientist met with patient this morning who stated she made "a big mistake" and told SW there was no way she can return to her apartment in her condition. Patient would like to go to [facility] ([facility]) at time of discharge. PT is at bedside and advised patient this would be their recommendation. ZACHARY contacted Gloria at [facility] who advised their team had concerns about her returning to [place] and are very supportive of her going SNF. Gloria advised they can accept for SNF once she is medically ready for discharge. ZACHARY faxed updates. Discharge Plan: [facility]
--- NOTE | 2022-03-13 10:40 | NUR ---
Engineering Production Worker met with patient this morning who stated she made "a big mistake" and told SW there was no way she can return to her apartment in her condition. Patient would like to [facility] to [facility] ([facility]) at time of discharge. PT is at bedside and advised patient this would be their recommendation. ZACHARY contacted Gloria at [facility] who advised their team had concerns about her returning to [place] and are very supportive of her going SNF. Gloria advised they can accept for SNF once she is medically ready for discharge. ZACHARY faxed updates. Discharge Plan: [facility]
--- NOTE | 2022-03-13 10:54 | NUR ---
[employer] student, Keena Tripathi, assisting primary nurse with patient today from [phone].
--- NOTE | 2022-03-13 10:54 | NUR ---
[employer] student, Keena Tripathi, assisting primary nurse with patient today from [phone].
[2022-03-13 12:05] VITALS: BP 155/81; PULSE 66; TEMP 97.4
[2022-03-13 12:45] VITALS: BP 155/84; PULSE 74; TEMP 98.1
--- NOTE | 2022-03-13 13:46 | NUR ---
Primary nurse was assisted with [phone] patient care by [employer] student Keena Tripathi and [employer] instructor Leyla BELTRAN RN.
--- NOTE | 2022-03-13 13:46 | NUR ---
Primary nurse was assisted with [phone] patient care by [employer] student Keena Tripathi and [employer] instructor Leyla BELTRAN RN.
--- NOTE | 2022-03-13 14:07 | NUR ---
Cardiac Rehab staff visit with patient regarding heart failure. Given handout on signs and symptoms and tracking sheet. Patient voiced understanding. Patient was talking with her doctor. Cardiac rehab staff only visit for 5 minutes.
[2022-03-13 15:29] VITALS: BP 158/82; PULSE 73; TEMP 97.6
--- NOTE | 2022-03-13 16:33 | NUR ---
Dr. Ragland visited patient at bedside and informed SW and Hospitalist that patient wants to transition to hospice. Dr. Ragland also advised patient would prefer [facility] or returning to [facility] on comfort care. ZACHARY gave referral to [facility] and was advised the earliest they could admit is Wednesday. ZACHARY also updated Gloria at [facility] who advised they can do an admission tomorrow. ZACHARY met with patient a handful of times this afternoon and ultimately, she prefers to go to [facility] and would like arrangements made so she can visit her apartment to take care of some things. Gloria advised they can schedule a visit to her apartment on Wednesday with the suppot of a Home Health aide.
--- NOTE | 2022-03-13 16:33 | NUR ---
Dr. Ragland visited patient at bedside and informed SW and Hospitalist that patient wants to transition to hospice. Dr. Ragland also advised patient would prefer [facility] or returning to [place] on comfort care. ZACHARY gave referral to [facility] and was advised the earliest they could admit is Wednesday. ZACHARY also updated Gloria at [facility] who advised they can do an admission tomorrow. ZACHARY met with patient a handful of times this afternoon and ultimately, she prefers to go to [place] and would like arrangements made so she can visit her apartment to take care of some things. Gloria advised they can schedule a visit to her apartment on Wednesday with the suppot of a Home Health aide.
--- NOTE | 2022-03-13 17:06 | NUR ---
PT ALERT AND ORIENTED TIMES 4. PT ON 4L OF O2 VIA NASAL CANULA. PT REPORTS PAIN IN LEGS, MEDICATION GIVEN. CALL LIGHT WITHIN REACH. NO FURTHER NEEDS IDENTIFIED.
[2022-03-13 19:28] VITALS: BP 158/82; PULSE 75; TEMP 98.7
[2022-03-14 00:05] VITALS: BP 163/87; PULSE 71; TEMP 99.1
[2022-03-14 03:17] VITALS: BP 157/82; PULSE 70; TEMP 98.3
[2022-03-14 05:53] VITALS: BP 185/103
[2022-03-14 05:55] VITALS: BP 182/100
[2022-03-14 05:59] VITALS: BP 177/102
[2022-03-14 06:07] VITALS: BP 189/100
--- NOTE | 2022-03-14 06:35 | NUR ---
ASSESSMENT COMPLETE FOR DIRECTOR OF PSYCHIATRY. PT RESTING IN BED WATCHING THE [employer] CHANNEL. PT CONTINUES TO COMPLAIN OF BACK PAIN. PT GIVEN TYLENOL SEVERAL TIMES TONIGHT AND A PAIN PATCH. PT DIDN'T FEEL IT WAS VERY EFFECTIVE FOR HER PAIN. PT OFFERED AND GIVEN A HEATING PAD FOR HER BACK. PT ALSO COMPLAINED OF WEAKNESS AND INSOMNIA. PT OFFERED MELATONIN. PT REFUSED BECAUSE IT DIDN'T HELP WITH HER INSOMNIA THE LAST TIME I GIVE IT TO HER. PT DENIED CHEST PAIN, PALPITATIONS, N,V,D OR DIZZINESS. AROUND 0540HRS PT CALLED OUT FOR PAIN MEDICATION. TYLENOL GIVEN FOR PAIN. WHILE IN PT'S ROOM, PT STATED SHE DIDN'T FEEL RIGHT. WHEN ASKED WHAT SHE MEANT, PT STATED, "IT JUST FEELS LIKE SOMETHING WRONG WITH ME." PT DENIED CHEST PAIN, BUT DID STATE SHE FELT SHORT OF AIR. VS TAKEN. PT'S O2 SATS WERE IN THE UPPER 80'S AND HER BP WAS ELEVATED (180'S/100'S). PT'S OXYGEN LEVELS RAISED FROM 4L TO 5. HOSPITALIST CALLED. APRESOLINE ORDERED AND GIVEN. INFORMATION PASSED ON TO DAYSHIFT RN FOR CONTINUED MONITORING. BED ALARM ON. CALL LIGHT WITHIN REACH.
--- NOTE | 2022-03-14 07:45 | NUR ---
PT'S BP DOWN TO 160'S/90'S. HOWEVER. PT UPSET. WANTED TO KNOW WHY WE WERE ALLOWING HER TO CONTINUE TO SUFFER. WHY WE COULD NOT GIVE HER SOMETHING FOR PAIN AND INSOMNIA WHEN TYLENOL AND MELATONIN WERE NOT WORKING. I TRIED TO EXPLAIN TO PT, I DID NOT WANT HER TO SUFFER, THAT I CAN'T GIVE HER MORE THEN WHAT WAS ORDERED FOR HER AND THAT BECAUSE OF HER KIDNEY, HEART ISSUES AND HER AGE, IT NARROWS WHAT THE PHYSICIANS ARE ABLE TO GIVE. BUT THAT I WOULD CALL AND HAVE TO DAYSHIFT RN TO CALL TO SEE IF WE COULD GET SOMETHING ELSE FOR HER. PT STATED PLEASE JUST TAKE ME TO HOSPICE, THEY CAN HELP ME THERE. THEN STARTED PRAYING AND ASKING THE LORD WHY HE HAD FORSAKEN HER AND TO PLEASE JUST TAKE HER HOME TO BE WITH HIM. I ASKED PT TO TRUST THAT GOD WOULD BE HER STRENGTH WHEN SHE WAS WEAK AND TO NOT MAKE LIFE CHANGING DECISION WHILE SHE WAS EXHAUSTED. I ASKED PT TO PLEASE JUST GIVE US A CHANCE TO TALK TO THE PHYSICIAN AND THE PHYSICIAN A CHANCE TO COME TALK TO HER. PT JUST SIGHED AND LAID HER HEAD BACK ON HER PILLOW. I ASSURED PT THAT THE DAYSRIFT RN AND MYSELF WOULD ENSURE THAT THE PHYSICIAN WAS NOTIFIED ABOUT HER CONCERNS. BED ALARM ON. CALL LIGHT WITHIN REACH. [place]
[2022-03-14] MEDS ORDERED: SYSTANE 0.4%-0.1 SOL OU (08:32)
[2022-03-14] MEDS ORDERED: DULCOLAX S10 MG/SUPP RC (08:32)
[2022-03-14] MEDS ORDERED: TRANSDERM-0.5 MG/21 TD (08:32)
[2022-03-14] MEDS ORDERED: ATIVAN 1MG T1 MG/TAB PO (08:33)
[2022-03-14] MEDS ORDERED: ROXANOL 20MG20 MG/ML SL (08:33)
--- NOTE | 2022-03-14 10:30 | NUR ---
PT DISCHAGED FROM THE UNIT,ORIENT AND ALERT,vs stable IV REMOVED TIP INTACT. PT ESCORTED OUT OF THE BUILDING BY Elio choudhary
--- NOTE | 2022-03-14 10:30 | NUR ---
PT DISCHAGED FROM THE UNIT,ORIENT AND ALERT,vs stable IV REMOVED TIP INTACT. PT ESCORTED OUT OF THE BUILDING BY Elio choudhary
--- NOTE | 2022-03-14 11:11 | NUR ---
Mixed Signal Design Engineer met with patient to review discharge plan. Patient is agreeable with discharge to [facility] on comfort. When SW told patient she could visit her apartment on Wednesday, patient stated she did not care about that now as she is just very tired. ZACHARY faxed discharge orders to Gloria at [facility]. Transport time set for 1030. ZACHARY contacted patient's granddaughter, Ana and provided update. Discharge Plan: [facility] on Comfort Care
--- NOTE | 2022-03-14 11:11 | NUR ---
Dispatcher Ship Pilot met with patient to review discharge plan. Patient is agreeable with discharge to [facility] on comfort. When SW told patient she could visit her apartment on Wednesday, patient stated she did not care about that now as she is just very tired. ZACHARY faxed discharge orders to Gloria at [facility]. Transport time set for 1030. ZACHARY contacted patient's granddaughter, Ana and provided update. Discharge Plan: [facility] on Comfort Care
== END 2022-03-14 10:30 | disposition hospice, inpatient (51) | DRG 280 ==
LOC: COL.ER 18:50 → MEDICAL 21:56
PROVIDERS: Nurse Practitioner Family; Nurse Practitioner Primary Care; Registered Nurse; ADMIT Internal Medicine
PROC: 30233N1 Transfusion of Nonautologous Red Blood Cells into Peripheral Vein, Percutaneous Approach (ICD-10-PCS; principal; 2022-03-11)
DX: I13.0 Hypertensive heart and chronic kidney disease with heart failure and stage 1 through stage 4 chronic kidney disease, or unspecified chronic kidney disease (principal); I21.A1 Myocardial infarction type 2; I50.33 Acute on chronic diastolic (congestive) heart failure; J96.01 Acute respiratory failure with hypoxia; N17.9 Acute kidney failure, unspecified; E87.1 Hypo-osmolality and hyponatremia; K21.9 Gastro-esophageal reflux disease without esophagitis; G47.33 Obstructive sleep apnea (adult) (pediatric); E03.9 Hypothyroidism, unspecified; M81.0 Age-related osteoporosis without current pathological fracture; G62.9 Polyneuropathy, unspecified; I48.0 Paroxysmal atrial fibrillation; N18.9 Chronic kidney disease, unspecified; E78.5 Hyperlipidemia, unspecified; G47.00 Insomnia, unspecified; D64.9 Anemia, unspecified; E87.8 Other disorders of electrolyte and fluid balance, not elsewhere classified; I08.3 Combined rheumatic disorders of mitral, aortic and tricuspid valves; R73.9 Hyperglycemia, unspecified; Z96.651 Presence of right artificial knee joint; Z79.890 Hormone replacement therapy; Z79.82 Long term (current) use of aspirin; Z90.710 Acquired absence of both cervix and uterus; Z88.1 Allergy status to other antibiotic agents; Z91.040 Latex allergy status; Z88.0 Allergy status to penicillin; Z88.2 Allergy status to sulfonamides; Z88.8 Allergy status to other drugs, medicaments and biological substances; Z91.018 Allergy to other foods; Z87.891 Personal history of nicotine dependence; Z23 Encounter for immunization
CPT/HCPCS: J0360; J1756; J1940; P9016